=== PATIENT | female | born 1980 | race Caucasian/White ===

== ENCOUNTER 2017-04-01 14:00 | Emergency (ER) | payer OTHER ==
[~2017-04-01] VITALS: Ht 160 cm; Wt 70.4 kg
[2017-04-01] MEDS ORDERED: GABA-283 PO (14:18)
[2017-04-01] MEDS ORDERED: OXYC1TAB16 PO (14:18)
[2017-04-01] MEDS ORDERED: VALI5TAB PO (14:18)
[2017-04-01] MEDS ORDERED: KETOROLAC 30 MG/ML VIAL (J1885) IV ONE (15:00)
[2017-04-01 17:57] VITALS: BP 149/105
== END 2017-04-01 17:58 | disposition home or self-care (01) ==
LOC: M ED 14:00
DX: G89.18 Other acute postprocedural pain (principal); M62.830 Muscle spasm of back; Z79.899 Other long term (current) drug therapy; Z91.013 Allergy to seafood; Z98.890 Other specified postprocedural states
CPT/HCPCS: 96374; 96375; 96376; 99283; J1885; J3360